=== PATIENT | male | born 1985 | race Caucasian/White ===

== ENCOUNTER 2020-11-10 12:09 | Emergency (ER) | payer BC ==
[~2020-11-10] VITALS: Ht 182.9 cm; Wt 93.4 kg
--- NOTE | 2020-11-10 12:17 | NUR ---
[email or web address], medical screening exam in progress
[2020-11-10] MEDS ORDERED: KETOROLAC TROMETHAMINE 30 MG INJ IVP ONE (12:30)
[2020-11-10] MEDS ORDERED: KETOROLAC TROMETHAMINE 30 MG INJ ONE (12:35)
[2020-11-10 12:56] LABS: HEMATOCRIT 42.5 % (36.7-47.1); MEAN CORPUSCULAR HEMOGLOBIN 32.8 uug (23.8-33.4); MEAN CORPUSCULAR VOLUME 95.5 fL (73.0-96.2); PLATELET COUNT (AUTO) 294 K/uL (152-348)
[2020-11-10 12:59] LABS: CREATININE 1.1 mg/dL (0.6-1.3); POTASSIUM 4.1 mmol/L (3.5-5.1)
[2020-11-10] MEDS ORDERED: IOHEXOL 300MG/ML 100 ML INFUS..BTL ONE (13:01)
[2020-11-10] MEDS ORDERED: SWABABLE VALVE TRANSFER SET EA MC ONE (13:01)
[2020-11-10] MEDS ORDERED: IV NORMAL SALINE 250 ML IV ONE (13:01)
--- NOTE | 2020-11-10 13:41 | NUR ---
Patient is resting comfortably on gurney while intermittently using his personal electronic device, NAD. His respiration is easy, even, symmetrical and non-labored.
[2020-11-10] MEDS ORDERED: DEXA6TAB6 PO (13:49)
--- NOTE | 2020-11-10 13:57 | NUR ---
IV removed. Catheter intact and site benign. Pressure and 4x4 gauze applied to site. No bleeding noted. Patient discharged to home in stable condition with brisk steady gait. Written and verbal after care instructions given. Patient verbalized understanding & compliance of instructions. Stressed follow up with primary doctor or return to ER for worsening s/s. Copies of all tests' results were given to patient.
== END 2020-11-10 13:57 | disposition home or self-care (01) ==
LOC: ER 12:09
DX: J02.9 Acute pharyngitis, unspecified (principal)
CPT/HCPCS: 36415; 70491; 80048; 85025; 96374; 99285; J1885; Q9967; A4663; J7050

== ENCOUNTER 2020-12-03 20:35 | Emergency (ER) | payer BC ==
[~2020-12-03] VITALS: Ht 182.9 cm; Wt 93.0 kg
[~2020-12-03 20:35] MED LIST: DEXA6TAB6 PO
[2020-12-03] MEDS ORDERED: IV NORMAL SALINE 1000 ML BAG IV ONE (23:00)
[2020-12-03] MEDS ORDERED: LORAZEPAM 2 MG/1 ML VIAL IV ONE (23:00)
[2020-12-03] MEDS ORDERED: PROCHLORPERAZINE EDISYLATE 10 MG/2 ML VIAL IV ONE (23:00)
[2020-12-03] MEDS ORDERED: PROCHLORPERAZINE EDISYLATE 10 MG/2 ML VIAL ONE (23:28)
[2020-12-03] MEDS ORDERED: LORAZEPAM 2 MG/1 ML VIAL ONE (23:31)
[2020-12-03 23:58] LABS: HEMATOCRIT 44.2 % (36.7-47.1); MEAN CORPUSCULAR HEMOGLOBIN 33.1 uug (23.8-33.4); MEAN CORPUSCULAR VOLUME 96.3 fL (73.0-96.2); PLATELET COUNT (AUTO) 239 K/uL (152-348)
[2020-12-04 00:03] LABS: POTASSIUM 3.7 mmol/L (3.5-5.1)
[2020-12-04 00:08] LABS: BILIRUBIN,DIRECT 0.2 mg/dL (0.0-0.2); BILIRUBIN,TOTAL 0.8 mg/dL (0.2-1.0); TOTAL PROTEIN, SERUM 7.6 g/dL (6.4-8.2)
[2020-12-04] MEDS ORDERED: CHLO25CA22 PO (00:39)
[2020-12-04] MEDS ORDERED: PROC-11 PO (00:39)
--- NOTE | 2020-12-04 01:02 | NUR ---
IV removed. Catheter intact and site benign. Pressure and 4x4 gauze applied to site. No bleeding noted.
--- NOTE | 2020-12-04 01:06 | NUR ---
Patient discharged to home in stable condition. Written and verbal after care instructions given. Patient verbalizes understanding of instructions. Stressed follow up or return to ER for worsening s/s.
[2020-12-04 01:07] VITALS: BP 139/96
== END 2020-12-04 01:07 | disposition home or self-care (01) ==
LOC: ER 20:37
DX: R74.01 Elevation of levels of liver transaminase levels (principal); R11.0 Nausea; E83.42 Hypomagnesemia; R03.0 Elevated blood-pressure reading, without diagnosis of hypertension; F10.10 Alcohol abuse, uncomplicated
CPT/HCPCS: 36415; 80048; 80076; 83735; 85025; 96361; 96374; 96375; 99284; J0780; J2060; A4663; J7030

== ENCOUNTER 2022-10-03 00:43 | Emergency (ER) | payer BC, OTHER ==
[~2022-10-03 00:43] MED LIST changes: +CHLO25CA22 PO; +PROC-11 PO
== END 2022-10-03 02:10 | disposition left against medical advice (07) ==
LOC: ER 00:48
DX: Z53.21 Procedure and treatment not carried out due to patient leaving prior to being seen by health care provider (principal)